=== PATIENT | male | born 2000 | race African-American/Black ===

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

== ENCOUNTER 2019-03-04 23:38 | Emergency (ER) | payer SELFPAY ==
[~2019-03-04] VITALS: Ht 182.9 cm; Wt 77.1 kg
[2019-03-04 23:46] VITALS: BP 117/75
[2019-03-05] MEDS ORDERED: diphenhydrAMINE HCL 50 MG CAPSULE PO ONE
[2019-03-05] MEDS ORDERED: diphenhydrAMINE HCL 25 MG CAPSULE ONE
== END 2019-03-05 00:44 | disposition home or self-care (01) ==
LOC: ER 23:43
DX: L50.0 Allergic urticaria (principal); R56.9 Unspecified convulsions; F10.10 Alcohol abuse, uncomplicated; Y90.9 Presence of alcohol in blood, level not specified; Z79.899 Other long term (current) drug therapy
CPT/HCPCS: 99282; Q0163

== ENCOUNTER 2020-08-19 09:52 | Emergency (ER) | payer MEDICAID ==
[~2020-08-19] VITALS: Ht 180.3 cm; Wt 81.6 kg
--- NOTE | 2020-08-19 10:03 | NUR ---
C/O EPIGASTRIC PAIN X 3 DAYS + NAUSEA, -DIARRHEA. PT AAOX4, VSS. RR EVEN & UNLABORED. DENIES CP, SOB, DIZZINESS AT THIS TIME. AWAITING EVAL BY ERMD. WILL CONT TO MONITOR.
[2020-08-19] MEDS ORDERED: CEFTRIAXONE 500 MG VIAL ONE (10:57)
[2020-08-19] MEDS ORDERED: MAG HYDROX/AL HYDROX/SIMETH 30 ML UDC ONE (10:57)
[2020-08-19] MEDS ORDERED: LIDOCAINE VISCOUS 2% UD 15 ML UDC ONE (10:57)
[2020-08-19] MEDS ORDERED: FAMOTIDINE (20 MG) 20 MG TABLET ONE (10:57)
[2020-08-19] MEDS ORDERED: LIDOCAINE /MPF 1% VIAL 5 ML VIAL ONE (10:58)
[2020-08-19] MEDS ORDERED: MAG HYDROX/AL HYDROX/SIMETH 30 ML UDC PO ONE (11:00)
[2020-08-19] MEDS ORDERED: FAMOTIDINE (20 MG) 20 MG TABLET PO ONE (11:00)
[2020-08-19] MEDS ORDERED: CEFTRIAXONE 1 G VIAL IM ONE (11:00)
[2020-08-19] MEDS ORDERED: LIDOCAINE VISCOUS 2% UD 15 ML UDC MM ONE (11:00)
--- NOTE | 2020-08-19 11:11 | NUR ---
MEDICATED PER ERMD ORDER, PT LIA WELL.
[2020-08-19] MEDS ORDERED: FAMO-131 PO (11:40)
[2020-08-19] MEDS ORDERED: DOXY100C2 PO (11:40)
[2020-08-19] MEDS ORDERED: ONDA4TAB5 PO (11:40)
--- NOTE | 2020-08-19 11:47 | NUR ---
Patient discharged to home in stable condition. Written and verbal after care instructions given. Patient verbalizes understanding of instruction.
[2020-08-19 12:10] VITALS: BP 127/78
== END 2020-08-19 12:11 | disposition home or self-care (01) ==
LOC: ER 09:52
DX: R10.13 Epigastric pain (principal); A64 Unspecified sexually transmitted disease
CPT/HCPCS: 96372; 99283; J0696; J3490

== ENCOUNTER 2020-08-20 12:53 | Emergency (ER) | payer MEDICAID ==
[~2020-08-20] VITALS: Ht 175.3 cm; Wt 68.9 kg
[~2020-08-20 12:53] MED LIST changes: +DOXY100C2 PO; +FAMO-131 PO; +ONDA4TAB5 PO
[2020-08-20 13:00] VITALS: BP 121/73
--- NOTE | 2020-08-20 13:00 | NUR ---
URINE SPECIMEN COLLECTED AND SENT TO LAB.
--- NOTE | 2020-08-20 13:24 | NUR ---
Patient discharged to home in stable condition. Written and verbal after care instructions given. Patient verbalizes understanding of instruction.
== END 2020-08-20 13:28 | disposition home or self-care (01) ==
LOC: ER 12:53
DX: A64 Unspecified sexually transmitted disease (principal)
CPT/HCPCS: 87086-TC; 87491; 87591

== ENCOUNTER 2020-09-01 00:21 | Emergency (ER) | payer MEDICAID ==
[~2020-09-01] VITALS: Ht 182.9 cm; Wt 81.6 kg
[2020-09-01 00:28] VITALS: BP 140/81
[2020-09-01] MEDS ORDERED: FAMOTIDINE (20 MG) 20 MG TABLET PO ONE (00:30)
[2020-09-01] MEDS ORDERED: predniSONE 10 MG TABLET PO ONE (00:30)
[2020-09-01] MEDS ORDERED: FAMOTIDINE (20 MG) 20 MG TABLET ONE (00:31)
[2020-09-01] MEDS ORDERED: predniSONE 20 MG TABLET ONE (00:31)
[2020-09-01] MEDS ORDERED: EPIN0.3P3 IJ (02:19)
== END 2020-09-01 02:27 | disposition home or self-care (01) ==
LOC: ER 00:21
DX: T78.1XXA Other adverse food reactions, not elsewhere classified, initial encounter (principal); L50.9 Urticaria, unspecified; Z91.010 Allergy to peanuts; Z79.899 Other long term (current) drug therapy; X58.XXXA Exposure to other specified factors, initial encounter
CPT/HCPCS: 99283; J7512 ×2